=== PATIENT | male | born 1965 ===

== ENCOUNTER 2022-08-24 17:40 | Emergency (ER) | payer OTHER ==
[2022-08-24] MEDS ORDERED: Diphtheria,Pertussis(Acell),Tetanus Vaccine 0.5 ML Syringe IM ONE (17:48)
[2022-08-24] MEDS ORDERED: Lidocaine 1% PF 2 ML SDV INJECT ONE (17:48)
== END 2022-08-24 18:29 | disposition home or self-care (01) ==
LOC: MW.ED 17:40
DX: S61.211A Laceration without foreign body of left index finger without damage to nail, initial encounter (principal); Z23 Encounter for immunization; Z91.013 Allergy to seafood; Z86.16 Personal history of COVID-19
CPT/HCPCS: 12001; 90471; 90715; 99282-25; J3490